=== PATIENT | female | born 1990 | race Hispanic/Latino ===

== ENCOUNTER 2021-10-25 18:02 | Emergency (ER) | payer BC, OTHER ==
[2021-10-25] MEDS ORDERED: Boostrix 0.5 ML (Tdap) VIAL ONE (18:24)
[2021-10-25] MEDS ORDERED: Bacitracin 1 PK ONE (18:24)
== END 2021-10-25 18:45 | disposition home or self-care (01) ==
LOC: NAV ERS 18:02
DX: S61.001A Unspecified open wound of right thumb without damage to nail, initial encounter (principal); W26.8XXA Contact with other sharp object(s), not elsewhere classified, initial encounter; Z23 Encounter for immunization
CPT/HCPCS: 90471; 90715